=== PATIENT | female | born 1975 | race Caucasian/White ===

== ENCOUNTER 2018-05-16 04:06 | Emergency (ER) | payer SELFPAY ==
[~2018-05-16] VITALS: Ht 170.2 cm; Wt 70.3 kg
[2018-05-16 04:13] VITALS: BP 123/68; Ht 170.2 cm; Wt 70.3 kg
== END 2018-05-16 05:38 | disposition home or self-care (01) ==
LOC: ED 04:06
DX: S46.912A Strain of unspecified muscle, fascia and tendon at shoulder and upper arm level, left arm, initial encounter (principal); S30.0XXA Contusion of lower back and pelvis, initial encounter; S16.1XXA Strain of muscle, fascia and tendon at neck level, initial encounter; V43.52XA Car driver injured in collision with other type car in traffic accident, initial encounter; Y93.I9 Activity, other involving external motion; Y92.89 Other specified places as the place of occurrence of the external cause; Y99.8 Other external cause status
CPT/HCPCS: J1885

== ENCOUNTER 2019-09-23 21:45 | Emergency (ER) | payer SELFPAY ==
[~2019-09-23] VITALS: Ht 170.2 cm; Wt 69.9 kg
[2019-09-24 00:14] VITALS: BP 104/59
== END 2019-09-24 00:14 | disposition home or self-care (01) ==
LOC: ED 21:45
DX: M54.6 Pain in thoracic spine (principal); G89.29 Other chronic pain
CPT/HCPCS: 72072; J1885